=== PATIENT | female | born 1990 | race Caucasian/White ===

== ENCOUNTER 2020-07-07 09:31 | Inpatient (IN) ==
[2020-07-07 07:23] LABS: Basophils # 0.1 K/mcL (0.0-0.2); Basophils % 0.4 %; Eosinophils # 0.1 K/mcL (0.0-0.6); Eosinophils % 0.3 %; Hematocrit 32.8 % (35.3-44.9); Hemoglobin 10.8 g/dL (11.5-15.4); Immature Granulocytes % 1.1 % (0-4); Lymphocytes # 3.9 K/mcL (0.6-4.6); Lymphocytes % 18.8 %; Mean Corpuscular HGB Conc 32.9 g/dL (31.6-35.5); Mean Corpuscular Hemoglobin 30.7 pg (28.0-33.3); Mean Corpuscular Volume 93.2 fL (83.0-100.0); Mean Platelet Volume 10.5 fL (9.4-12.4); Monocytes % 4.8 %; Neutrophils # 15.6 K/mcL (1.6-8.9); Platelet Count 281 K/mcL (140-400); Red Blood Count 3.52 M/mcL (3.82-4.97); Red Cell Distribution Width 13.2 % (11.5-14.5); Segmented Neutrophils % 74.6 %
[2020-07-07 09:11] LABS: Amphetamine Screen,Urine Negative ng/mL (Cutoff=1000); Barbiturate Screen,Urine Negative ng/mL (Cutoff=200); Benzodiazepines Screen,Urine Negative ng/mL (Cutoff=200); Cannabinoid Screen,Urine Negative ng/mL (Cutoff = 50); Cocaine Screen,Urine Negative ng/mL (Cutoff= 300); Opiate Screen,Urine Negative ng/mL (Cutoff=300); Phencyclidine Screen,Urine Negative ng/mL (Cutoff=25)
[~2020-07-07 09:31] MED LIST: *HR* FentaNYL (PF) 100 MCG/2 ML VIAL ONE; *HR* HYDROMORPHONE 2 MG/ML VIAL ONE; *HR* HYDROmorphone PF 0.5 MG/0.5 ML SYRINGE IVP PRN; *HR* Meperidine 25 MG/ML SYRINGE IVP PRN; *HR* OxyCODONE Immed Rel 5 MG TABLET PO PRN; *HR* Oxytocin 10 UNIT/ML VIAL IM ONE; *HR* Phenylephrine 10 MG/ML VIAL ONE; *HR* Promethazine 25 MG/ML VIAL IVP PRN; *HR* Propofol 200 MG/20 ML VIAL IVP ONE; *HR* Rocuronium Bromide 50 MG/5 ML VIAL ONE; Acetaminophen IV 1,000 MG/100 ML INFUS..BTL IVPB ONE; Acetaminophen IV 1,000 MG/100 ML INFUS..BTL ONE; Azithromycin 500 MG in 0.9 % Sodium Chloride 250 ML IVPB ONE; Dexamethasone 4 MG/ML VIAL ONE; EPHEDrine 50 MG/ML VIAL ONE; Famotidine 20 MG/2 ML VIAL IVP PRN; Ketorolac 30 MG/ML VIAL ONE; Neostigmine Methylsulfate 3 MG/3 ML SYRINGE ONE; Ondansetron 4 MG/2 ML VIAL IVP ONE; Ondansetron 4 MG/2 ML VIAL IVP PRN; Ondansetron 4 MG/2 ML VIAL ONE; Oxytocin 20 units/ LR 1000 mL 20 UNIT/1,000 ML BAG IVC ONE; Ringers Solution, Lactated 1,000 ML IVC SCH; Ringers Solution, Lactated 1,000 ML ONE
[2020-07-07] MEDS ORDERED: Metoclopramide 10 MG/2 ML VIAL IVP PRN (11:39)
[2020-07-07] MEDS ORDERED: Oxytocin 20 units/ LR 1000 mL 20 UNIT/1,000 ML BAG IVC SCH ×2 (11:39)
[2020-07-07] MEDS ORDERED: Sennosides 8.6 MG TABLET PO PRN (11:39)
[2020-07-07] MEDS ORDERED: Ondansetron 4 MG/2 ML VIAL IVP PRN (11:39)
[2020-07-07] MEDS ORDERED: Naloxone 0.4 MG/ML INJ IVP PRN ×2 (11:39)
[2020-07-07] MEDS ORDERED: Rho Immune Globulin 1,500 UNIT SYRINGE IM ONE (11:39)
[2020-07-07] MEDS: Morphine PCA 30 MG/ 30 ML 30 ML PCA.VIAL IVC PRN (13:00)
[2020-07-07] MEDS: Prenatal Vit/FA 1 EACH TABLET PO SCH (13:12)
[2020-07-07] MEDS: metroNIDAZOLE 500 MG TABLET PO SCH ×2 (13:12→20:22)
[2020-07-07] MEDS: cephALEXin 500 MG CAPSULE PO SCH ×2 (13:13→20:22)
[2020-07-07] MEDS: Ringers Solution, Lactated 1,000 ML IVC SCH ×2 (15:32→23:51)
[2020-07-07] MEDS: Simethicone 80 MG TAB.CHEW PO PRN (16:54)
[2020-07-07] MEDS: Ibuprofen 600 MG TABLET PO PRN (20:22)
[2020-07-08] MEDS: Simethicone 80 MG TAB.CHEW PO PRN ×2 (00:43→08:50)
[2020-07-08] MEDS: Ibuprofen 600 MG TABLET PO PRN ×2 (02:52→19:32)
[2020-07-08 06:52] LABS: Basophils % 0.2 %; Hematocrit 21.4 % (35.3-44.9); Hemoglobin 7.1 g/dL (11.5-15.4); Immature Granulocytes % 0.9 % (0-4); Lymphocytes # 4.1 K/mcL (0.6-4.6); Lymphocytes % 18.6 %; Mean Corpuscular HGB Conc 33.2 g/dL (31.6-35.5); Mean Corpuscular Volume 93.4 fL (83.0-100.0); Mean Platelet Volume 10.4 fL (9.4-12.4); Monocytes # 1.3 K/mcL (0.0-1.3); Monocytes % 6.1 %; Neutrophils # 16.2 K/mcL (1.6-8.9); Platelet Count 231 K/mcL (140-400); Red Blood Count 2.29 M/mcL (3.82-4.97); Segmented Neutrophils % 74.2 %; White Blood Count 21.8 K/mcL (4.3-11.1)
[2020-07-08] MEDS: metroNIDAZOLE 500 MG TABLET PO SCH ×3 (08:50→22:53)
[2020-07-08] MEDS: cephALEXin 500 MG CAPSULE PO SCH ×3 (08:50→22:53)
[2020-07-08] MEDS: Prenatal Vit/FA 1 EACH TABLET PO SCH (08:50)
[2020-07-08] MEDS: Morphine PCA 30 MG/ 30 ML 30 ML PCA.VIAL IVC PRN (09:11)
[2020-07-08] MEDS: *HR* OxyCODONE/APAP 5/325 TABLET PO PRN (13:23)
[2020-07-09] MEDS: *HR* OxyCODONE/APAP 5/325 TABLET PO PRN ×2 (02:47→20:22)
[2020-07-09] MEDS: Simethicone 80 MG TAB.CHEW PO PRN (04:46)
[2020-07-09] MEDS: Ibuprofen 600 MG TABLET PO PRN ×2 (04:46→11:55)
[2020-07-09] MEDS: Ondansetron ODT 4 MG TAB.RAPDIS SL PRN (10:23)
[2020-07-09 11:11] LABS: Hematocrit 26.4 % (35.3-44.9); Mean Corpuscular Hemoglobin 31.4 pg (28.0-33.3); Mean Corpuscular Volume 95.3 fL (83.0-100.0); Mean Platelet Volume 10.3 fL (9.4-12.4); Platelet Count 350 K/mcL (140-400); Red Blood Count 2.77 M/mcL (3.82-4.97); Red Cell Distribution Width 13.1 % (11.5-14.5); White Blood Count 22.2 K/mcL (4.3-11.1)
[2020-07-09 11:12] LABS: Hemoglobin 8.7 g/dL (11.5-15.4)
[2020-07-09 11:30] LABS: Alanine Aminotransferase 10 Units/L (7-52); Albumin 3.3 g/dL (3.5-5.7); Albumin/Globulin Ratio 1.2 (1.1-2.2); Alkaline Phosphatase 108 Units/L (34-104); Amylase 24 Units/L (29-103); Aspartate Amino Transferase 19 Units/L (13-39); BUN/Creatinine Ratio 26 (6-26); Bilirubin,Total 0.3 mg/dL (0.3-1.0); Blood Urea Nitrogen 13 mg/dL (6-20); Calcium 9.3 mg/dL (8.6-10.3); Carbon Dioxide 21 mEq/L (23-29); Chloride 106 mEq/L (98-107); Globulin 2.7 g/dL (2.4-3.5); Glucose 126 mg/dL (70-105); Lipase 4 Units/L (11-82); Osmolality,Calculated 288 (280-300); Sodium 138 mEq/L (136-145); eGFR For African Americans > 60 (> 60); eGFR For Non-African Americans > 60 (> 60)
[2020-07-09] MEDS: metroNIDAZOLE 500 MG TABLET PO SCH (11:57)
[2020-07-09] MEDS: cephALEXin 500 MG CAPSULE PO SCH (11:58)
[2020-07-09] MEDS: Prenatal Vit/FA 1 EACH TABLET PO SCH (12:02)
[2020-07-10] MEDS: Prenatal Vit/FA 1 EACH TABLET PO SCH (07:44)
[2020-07-10] MEDS: Ibuprofen 600 MG TABLET PO PRN (07:44)
[2020-07-10] MEDS: Ondansetron ODT 4 MG TAB.RAPDIS SL PRN (07:49)
[2020-07-10 08:10] VITALS: BP 113/76
[2020-07-10] MEDS: *HR* OxyCODONE/APAP 5/325 TABLET PO PRN (10:00)
== END 2020-07-10 11:34 | disposition home or self-care (01) | DRG 540 ==
LOC: 1NENULAB → 1NENUOBS 10:40
PROVIDERS: ADMIT Obstetrics & Gynecology; ATTEND Obstetrics & Gynecology

== ENCOUNTER 2021-10-28 04:55 | Inpatient (IN) ==
[~2021-10-28 04:55] MED LIST changes: -*HR* FentaNYL (PF) 100 MCG/2 ML VIAL ONE; -*HR* HYDROMORPHONE 2 MG/ML VIAL ONE; -*HR* HYDROmorphone PF 0.5 MG/0.5 ML SYRINGE IVP PRN; -*HR* Meperidine 25 MG/ML SYRINGE IVP PRN; +*HR* Nalbuphine 10 MG/ML AMPUL IV PRN; -*HR* OxyCODONE Immed Rel 5 MG TABLET PO PRN; -*HR* Oxytocin 10 UNIT/ML VIAL IM ONE; -*HR* Phenylephrine 10 MG/ML VIAL ONE; -*HR* Promethazine 25 MG/ML VIAL IVP PRN; -*HR* Propofol 200 MG/20 ML VIAL IVP ONE; -*HR* Rocuronium Bromide 50 MG/5 ML VIAL ONE; -Acetaminophen IV 1,000 MG/100 ML INFUS..BTL IVPB ONE; -Acetaminophen IV 1,000 MG/100 ML INFUS..BTL ONE; -Azithromycin 500 MG in 0.9 % Sodium Chloride 250 ML IVPB ONE; +Azithromycin 500 MG in 0.9 % Sodium Chloride 250 ML IVPB PRN; -Dexamethasone 4 MG/ML VIAL ONE; -EPHEDrine 50 MG/ML VIAL ONE; -Ketorolac 30 MG/ML VIAL ONE; +Lidocaine 1% 20 ML MDV INFILT PRN; +Metoclopramide 10 MG/2 ML VIAL IVP PRN; +Naloxone 0.4 MG/ML INJ IVP PRN; -Neostigmine Methylsulfate 3 MG/3 ML SYRINGE ONE; -Ondansetron 4 MG/2 ML VIAL IVP ONE; -Ondansetron 4 MG/2 ML VIAL ONE; -Oxytocin 20 units/ LR 1000 mL 20 UNIT/1,000 ML BAG IVC ONE; -Ringers Solution, Lactated 1,000 ML IVC SCH; -Ringers Solution, Lactated 1,000 ML ONE
[2021-10-28] MEDS ORDERED: Oxytocin 20 units/ LR 1000 mL 20 UNIT/1,000 ML BAG IVC SCH (05:00)
[2021-10-28] MEDS ORDERED: Ringers Solution, Lactated 1,000 ML IVC SCH (05:00)
[2021-10-28 05:41] LABS: Basophils # 0.1 K/mcL (0.0-0.2); Basophils % 0.6 %; Eosinophils # 0.1 K/mcL (0.0-0.6); Eosinophils % 0.7 %; Hematocrit 36.9 % (35.3-44.9); Hemoglobin 12.3 g/dL (11.5-15.4); Immature Granulocytes % 1.7 % (0-4); Lymphocytes # 3.2 K/mcL (0.6-4.6); Lymphocytes % 22.3 %; Mean Corpuscular HGB Conc 33.3 g/dL (31.6-35.5); Mean Corpuscular Hemoglobin 30.8 pg (28.0-33.3); Mean Corpuscular Volume 92.5 fL (83.0-100.0); Mean Platelet Volume 10.7 fL (9.4-12.4); Monocytes % 6.8 %; Neutrophils # 9.7 K/mcL (1.6-8.9); Platelet Count 287 K/mcL (140-400); Red Blood Count 3.99 M/mcL (3.82-4.97); Red Cell Distribution Width 13.9 % (11.5-14.5); Segmented Neutrophils % 67.9 %; White Blood Count 14.3 K/mcL (4.3-11.1)
[2021-10-28 06:20] LABS: Influenza A PCR Negative (Negative); Influenza B PCR Negative (Negative); Resp. Syncytial Virus PCR Negative (Negative)
[2021-10-28] MEDS ORDERED: EPHEDrine 50 MG/ML VIAL IVP PRN (06:26)
[2021-10-28 06:27] LABS: SARS-CoV-2 by PCR (In House) Negative (Negative)
[2021-10-28 08:43] LABS: Amphetamine Screen,Urine Negative ng/mL (Cutoff=1000); Barbiturate Screen,Urine Negative ng/mL (Cutoff=200); Benzodiazepines Screen,Urine Negative ng/mL (Cutoff=300)
[2021-10-28 08:44] LABS: Cannabinoid Screen,Urine Negative ng/mL (Cutoff = 50); Cocaine Screen,Urine Negative ng/mL (Cutoff= 300); Opiate Screen,Urine Negative ng/mL (Cutoff=300); Phencyclidine Screen,Urine Negative ng/mL (Cutoff=25)
[2021-10-28] MEDS: Epidural Premix (fent/bupiv) 110 ML EP SCH ×3 (10:12→19:53)
[2021-10-29] MEDS ORDERED: Measles/Mumps/Rubella Vacc 0.5 ML VIAL SQ PRN (00:03)
[2021-10-29] MEDS ORDERED: Benzocaine/Menthol 56 GM AEROSOL SPRAY TP PRN (00:03)
[2021-10-29] MEDS ORDERED: Lanolin 7 G OINT...G. TP PRN (00:03)
[2021-10-29] MEDS ORDERED: Rho Immune Globulin 1,500 UNIT SYRINGE IM PRN (00:03)
[2021-10-29] MEDS ORDERED: Ondansetron ODT 4 MG TAB.RAPDIS SL PRN (00:03)
[2021-10-29] MEDS ORDERED: Oxytocin 20 units/ LR 1000 mL 20 UNIT/1,000 ML BAG IVC SCH (00:03)
[2021-10-29] MEDS: Prenatal Vit/FA 1 EACH TABLET PO SCH (08:51)
[2021-10-29] MEDS: Acetaminophen 325 MG TABLET PO SCH ×2 (08:51→15:40)
[2021-10-29] MEDS: Ibuprofen 600 MG TABLET PO SCH (21:08)
[2021-10-30 08:26] VITALS: BP 119/78; PULSE 86; TEMP 97.7; O2SAT 99
[2021-10-30] MEDS: Prenatal Vit/FA 1 EACH TABLET PO SCH (08:45)
[2021-10-30] MEDS: Ibuprofen 600 MG TABLET PO SCH (08:45)
[2021-10-30] MEDS ORDERED: BuPROPion XL (24 HR) 150 MG TABLET PO SCH (09:00)
== END 2021-10-30 11:15 | disposition home or self-care (01) | DRG 560 ==
LOC: 1NENULAB → 1NENUOBS 10-29 00:27
PROVIDERS: ADMIT Student in an Organized Health Care Education/Training Program; ATTEND Student in an Organized Health Care Education/Training Program